=== PATIENT | male | born 1970 | race Two or more races ===

== ENCOUNTER 2025-07-28 01:16 | Emergency (ER) | payer OTHER ==
[~2025-07-28] VITALS: Ht 188 cm; Wt 100.0 kg
[2025-07-28 01:23] VITALS: O2SAT 98
[2025-07-28] MEDS: ACETAMINOPHEN 325MG TABLET PO ONE (01:57)
[2025-07-28] MEDS: HYDROCODONE/ACETAMINOPHEN 5/325MG TABLET PO ONE (03:21)
[2025-07-28] MEDS ORDERED: IBUP-1455 MT (04:10)
[2025-07-28 04:17] VITALS: BP 143/91; PULSE 61; RESP 16; TEMP 36.4; O2SAT 98
== END 2025-07-28 04:25 | disposition home or self-care (01) ==
LOC: ER 01:16
DX: S09.90XA Unspecified injury of head, initial encounter (principal); V89.2XXA Person injured in unspecified motor-vehicle accident, traffic, initial encounter; Y93.89 Activity, other specified; Y92.410 Unspecified street and highway as the place of occurrence of the external cause; Y99.8 Other external cause status
CPT/HCPCS: 99284